=== PATIENT | female | born 1960 | race Caucasian/White ===

== ENCOUNTER 2025-07-05 13:18 | Emergency (ER) | payer OTHER, SELFPAY ==
--- OUTSIDE RECORDS SUMMARY | 2025-07-05 13:22 | XMS_ITS | Clinical Summary ---
Author Organization [facility] [employer] Address [address] [place] [address] Care Team Providers Care Change Management Manager Name Role Phone Unavailable Primary Care Provider Unavailabl e Source Comments [facility],non-owned Affiliates and Associated Physician Practices is amultiple site organization consisting of ambulatory clinics and hospital sitesin [place], [place], [place] and [place]. This disclosure is being madepursuant to the Care Everywhere program and may not contain all information available regarding this patient. Last updated 18.[facility] Allergies No known active allergies Medications * Be aware that medications may not be up to date on this document. Alwaysverify current medications with the patient. Venlafaxine HCl (EFFEXOR PO) Active CLONAZEPAM PO Active GABAPENTIN, ONCE-DAILY, PO Activ e dilTIAZem coated beads 24hr (CARTIA XT) 120 MG capsuleIndication s:Essential hypertension Take 1 Cap by mouth once daily Do not crush or chew. 30 Cap 02/09/2017 Active Immunizations Immunization Administration Dates Next Due TDAP (7yrs+) 02/12/2018 Family History Medical History Relation Name Comments Diabetes - Type 1 Father Diabetes - Type 1 Mother Relation Name Status Comments Father Mother Social History Tobacco Use Types Packs/Day Years Used Date Smoking Tobacco: Never Comments No Sex and Gender Information Value Date Recorded Sex Assigned at Not on file Legal Sex Female 6:40 PM CDT Gender Identity Not on file Sexual Orientation Not on file Last Filed Vital Signs Vital Sign Reading Time Taken Comments Blood Pressure 132/90 02/09/2017 6:53 PM CDT Pulse 74 02/09/2017 6:53 PM CDT Temperature 37 C (98.6 F) 02/09/2017 6:53 PM CDT Respiratory Rate 16 02/09/2017 6:53 PM CDT Oxygen Saturation 99% 02/09/2017 6:53 PM CDT Inhaled Oxygen Concentration - - Weight 62.6 kg (138 lb) 02/09/2017 6:53 PM CDT Height 167.6 cm (5' 6) 02/09/2017 6:53 PM CDT Body Mass Index 22.27 02/09/2017 6:53 PM CDT Plan of Treatment Health Maintenance Due Date Last Done Comments COLOGUARD (AGES 45-75) - COLON CA SCREENING 1962 COLON MONITORING 1962 COLONOSCOPY - COLON CA SCREENING 1962 CT COLONOGRAPHY - COLON CA SCREENING 1962 Colorectal Cancer Screening 1962 FIT - COLON CA SCREENING 1962 FLEX SIG - COLON CA SCREENING 1962 LIPID TESTING 1962 MAMMOGRAM 1962 HIV SCREENING 1977 HEPATITIS C SCREENING 06/05/1980 PNEUMOCOCCAL VACCINE 50+ (1 of 1 - PCV) 2012 ZOSTER VACCINE (1 of 2) 2012 DEPRESSION SCREENING 09/19/2024 COVID-19 VACCINE (1 - season) 2025 INFLUENZA VACCINE (#1) 2025 5, 07/20/2014, 07/20/2013, Additional history exists DTAP/TDAP/TD VACCINES (2 - Td or Tdap) 02/13/2028 02/12/2018 Respiratory Syncytial Virus (RSV) Vaccine Pt: or over 60 yrs (1 - 1-dose 75+ series) 2037 HEPATITIS B VACCINE Aged Out No longe r eligible based on patient's age to complete this topic HIB VACCINE Aged Out No longer eligi ble based on patient's age to complete this topic HPV VACCINE Aged Out No longer eligi ble based on patient's age to complete this topic MENINGOCOCCAL (Group B) VACCINE SHARED DECISION-MAKING Aged Out No longer eligible based on patient's age to complete this topic MENINGOCOCCAL GROUPS A/C/Y/W VACCINE Aged Out No longer eligible based on patient's age to complete this [place] [address] [place] [address] [facility]
--- OUTSIDE RECORDS SUMMARY | 2025-07-05 13:22 | XMS_ITS | Clinical Summary ---
Author Organization [facility] Address [address] [place] [address] Phone Care Team Providers Care Inhalation Therapy Aide Name Role Phone Todd Packer MD Unavailable [phone] Allergies No known active allergies Medications Calcium Carbonate-Vitami n D (CALCIUM + D PO) Take 1 Tab by mouth daily. Active venlafaxine (EFFEXOR XR) 150 MG PO CAP-SR-24HR Take 150 mg by mouth daily. Active CLONAZEPAM 0.5 MG PO TABS Take 1 Tab by mouth nightly. 4 Active MAGNESIUM PO Take 1 Tab by mouth daily. Active gabapentin (NEURONTIN) 300 MG PO CAPS Take 600 mg by mouth nightly. Active [place]-3 Fatty Acids (FISH OIL) 1200 MG PO CAPS Take 1,200 mg by mouth daily. Active Melatonin 1 MG PO CAPS Take 0.5 mg by mouth. Active Multiple Vitamins-Mineral s (MULTIVITAMIN PO) Take by mouth. Active triamcinolone (KENALOG) 0.1 % CreamIndications :Eczema, unspecified eczema Apply thin film to affected area(s) twice daily until healed. 80 g 1 5 Active CARTIA XT 120 MG CAPSULE SR 24 HR TAKE 1 CAPSULE BY MOUTH DAILY 30 Cap 0 7 Active Active Problems Problem Noted Date Diagnosed Date Colon cancer screening 11/01/2014 Overview (11/01/2014): No family history colon cancer. Colonoscopy to 2014. No polyps. Repeat colonoscopy 10 years. Headache, menstrual migraine 09/04/2014 Dyspnea and respiratory abnormality 05/28/2014 Bronchiectasis without acute exacerbation 2013 BMI 26.0-26.9,adult 03/09/2013 Vitamin D deficiency 03/09/2013 GERD (gastroesophageal reflux disease) 2 Chronic cough 11/09/2011 Overview (03/09/2013): Chronic bronchitis, Alb prn, Sees Dr Brunner HTN (hypertension), benign 11/09/2011 Preventative health care (Adult) 11/09/2011 Overview (03/09/2013): Nl pap [address] Barron. Nl Mammo 2012 per pt. Depression 11/09/2011 Overview (03/09/2013): Sees psych Dr Mcgrath. Immunizations Immunization Administration Dates Next Due Influenza Vaccine greater than 3 yrs 07/20/2014, 07/20/2013,08/18/2011 PUR FLU 3+ YRS PRES FREE QUAD IM 07/17/2015 Family History Medical History Relation Name Comments Diabetes Father Cancer Mother pancreatic ca Diabetes Mother Hypertension Mother Stroke Paternal Grandmother Asthma Neg Hx Breast Cancer Neg Hx Heart Attack Neg Hx Ovarian Cancer Neg Hx Thyroid Disease Neg Hx Relation Name Status Comments Father Mother Paternal Grandmother Social History Tobacco Use Types Packs/Day Years Used Date Smoking Tobacco: Never Smokeless Tobacco: Never Alcohol Use Standard Drinks/Week Comments Yes 0 (1 standard drink = 0.6 oz pur e alcohol) once per month Sexually Active Control Partners Comments Yes Comments No Sex and Gender Information Value Date Recorded Sex Assigned at Not on file Legal Sex Female 3:17 AM RESEARCH GEOLOGIST Gender Identity Not on file Sexual Orientation Not on file Last Filed Vital Signs Vital Sign Reading Time Taken Comments Blood Pressure 142/90 07/17/2015 7:47 AM CDT Pulse 80 07/17/2015 7:47 AM CDT Temperature 37.1 C (98.7 F) 07/17/2015 7:47 AM CDT Respiratory Rate 16 07/17/2015 7:47 AM CDT Oxygen Saturation 100% 11/13/2014 11:11 AM RESEARCH GEOLOGIST on room air Inhaled Oxygen Concentration - - Weight 73.9 kg (163 lb) 07/17/2015 7:47 AM CDT Height 165.1 cm (5' 5) 07/17/2015 7:47 AM CDT Body Mass Index 27.12 07/17/2015 7:47 AM CDT Plan of Treatment Health Maintenance Due Date Last Done Comments Hepatitis C Virus (HCV) Screening 1962 TdaP Immunization 1962 Pneumococcal Immunization (50+ years) (1 of 2 - PCV) 1981 HPV/Cotest 1992 Cologuard 2007 Immunochemical Fecal Occult Blood 2007 Zoster Immunization (1 of 2) 2012 Cervical Cancer Screening (CCS) 07/17/2018 Pap Smear 07/17/2018 07/17/2015, 06/20, 03/15/2012, Additional history exists Respiratory Syncytial Virus (RSV) Immunization (Adult) (1 - Risk 60-74 years 1-dose series) 2022 Colonoscopy 11/01/2024 11/01/2014, 11/01/2014 Colorectal Cancer Screening 11/01/2024 Influenza Immunization (#1) 05/20/202506/20, 07/20/2014, 07/20/2013, Additional history exists SARS-COV-2 Immunization ( season) 2025 Mammogram Discontinued 10/24/2014 Hepatitis B Immunization Aged Out No longer eligible based on patient's age to complete this topic Human Papillomavirus (HPV) Immunization Aged Out No longer eligible based on patient's age to complete this topic Meningococcal Immunization (ACWY) Aged Out No longer eligible based on patient's age to complete this topic Rotavirus Immunization Aged Out No lo nger eligible based on patient's age to complete this topic Procedures Procedure Name Priority Date/Time Associated Diagnosis Comments PATHOLOGY CYTOLOGY FAMILY LAW SPECIALIST Routine 07/17/2015 8:07 AM CDT Well woman exam with routine gynecological exam NICHOLE SCREENING BILATERAL DIGITAL W CAD Routine 10/24/2014 12:01 PM RESEARCH GEOLOGIST Other screening mammogram from Last 3 Months or Most Recently Relevant to Health Maintenance Results * PATHOLOGY CYTOLOGY FAMILY LAW SPECIALIST (07/17/2015 8:07 AM CDT) SPECIMEN ADEQUACY Satisfactory for evaluation. Endocervical cells present. 07/29/2015 7:23 AM [facility] DESCRIPTIVE DIAGNOSIS Negative for intraepithelial lesions. No dysplastic cells present. 07/29/2015 7:23 AM [facility] at 0723 RESEARCH GEOLOGIST OTHER FINDINGS Atrophic hormonal pattern. 07/29/2015 7:23 AM [facility] AUTOMATED EXAMINATION Analysis of this sample has been assisted by an automated imaging and review system ([employer] System, [place], [place], [place]). This case is further evaluated and finalized by a cage shift manager and/or pathologist. 07/29/2015 7:23 AM [facility] DISCLAIMER The PAP smear is a screening test designed to detect cancerous or precancerous cells of the uterine cervix. It is one of the best means available for detection of cervical cancer but still carries an inherent false-negative rate. The consequences of a false-negative PAP result can be minimized by adhering to current screening guidelines. The following are general guidelines recommended by the ACS, ASCP, ASCCP, and ACOG: PAP testing is recommended every three years for women 21-29, Co-Testing, a PAP test in conjunction with an HPV (Human Papillomavirus) test for women ages 30-65, and no PAP or HPV testing for women under the age of 21 or older than 65 unless clinically indicated. 07/29/2015 7:23 AM [facility] Case Report Gynecologic Cytology Report Case: [id number] Authorizing Provider: Lupe Garcia APN Collected: 07/17/2015 08:07 AM Ordering Location: [facility] Received: 07/17/2015 02:33 PM MEDICINE First Screen: Lise Booker Rescreen: Paxton Barker. Specimen: Cervical/Endocervic al, liquid based thin layer preparation (Thin Prep ), CERVIX/ENDOCERVIX 07/29/2015 7:23 AM [facility] HPV Reflex if ASCUS? Yes 07/29/2015 7:23 AM [facility] Specimen of unknown material (specimen) CERVIX UTERI STRUCTURE / Unknown 07/17/2015 8:07 AM CDT 07/17/2015 2:33 PM CDT us Lupe Gilmore APRN, CNP PATHOLOGY/CYTOLOGY ORDER CHIP Final Result [facility] [address] [place] [address] * NICHOLE SCREENING BILATERAL DIGITAL W CAD (10/24/2014 12:01 PM RESEARCH GEOLOGIST) Anatomical Region Laterality Modality breast Bilateral Mammography Impressions 10/26/2014 6:05 PM RESEARCH GEOLOGIST No suspicious mammographic findings. RECOMMENDATION: Annual mammography. BIRADS: 1 - NEGATIVE Narrative 10/26/2014 6:05 PM RESEARCH GEOLOGIST DICTATING PHYSICIAN: Mohan Lin MD EXAM: Bilateral screening Mammography with CAD dated 10/24/2014 CLINICAL HISTORY: Scheduled screening mammogram. COMPARISON: Mammography dated: 07/05/2005, 01/05/2006. FINDINGS: Standard mammographic views were obtained. The exam was interpreted with the use of CAD. The breasts are composed of heterogeneously dense fibroglandular tissue. No suspicious masses, calcifications or other abnormal findings are identified in either breast. There has been no significant change in the mammographic appearance of either breast. Procedure Note Mohan Lin MD - 10/26/2014 DICTATING PHYSICIAN: Mohan Lin MD EXAM: Bilateral screening Mammography with CAD dated 10/24/2014 CLINICAL HISTORY: Scheduled screening mammogram. COMPARISON: Mammography dated: 07/05/2005, 01/05/2006. FINDINGS: Standard mammographic views were obtained. The exam was interpreted withthe use of CAD. The breasts are composed of heterogeneously densefibroglandular tissue. No suspicious masses, calcifications or otherabnormal findings are identified in either breast. There has been nosignificant change in the mammographic appearance of either breast. IMPRESSION: No suspicious mammographic findings. RECOMMENDATION: Annual mammography. BIRADS: 1 - NEGATIVE us Mara Navarro MD IMG MAMMO ORDERABLES Fi nal Result from Last 3 Months or Most Recently Relevant to Health Maintenance Care Teams Inhalation Therapy Aide Relationship Specialty Start Date End Date Todd Packer MD [address] [address] [employer] Executive Obstetrics & Gynecology 03/12/13
--- OUTSIDE RECORDS SUMMARY | 2025-07-05 13:22 | XMS_ITS | Encounter Summary ---
Author Organization [facility] Healthcare Address [address] [place] [address] Care Team Providers Care Medical Office Supervisor Name Role Phone Kelly Roa MD Primary Care Provider [phone] Reason for Visit * Reason Onset Date Comments Cough 06/25/2025 Encounter Details Date Type Department Care Team (Late st Contact Info) Description 06/25/2025 Nurse Triage [address] [place] [address] Kelly Roa MD [address] [place] [address] [address] [place], [place] [id number] Social History Tobacco Use Types Packs/Day Years Used Date Smoking Tobacco: Never Smokeless Tobacco: Never Comments:None Alcohol Use Standard Drinks/Week Comments No 0 (1 standard drink = 0.6 oz pur e alcohol) AUDIT-C Answer Date Recorded Q1: How often do you have a drink containing alc ohol? Monthly or less 11/30/2022 Q2: How many drinks containi ng alcohol do you have on a typical day when you are drinking? 1 or 2 11/30/2022 Frequency of Binge Drinking Not on file 11/17 PHQ-2 Answer Date Recorded PHQ-2 Total Score (If total score is 3 or more points, staff should administer the PHQ-9) 0 07/30/2024 Exercise Vital Sign Answer Date Recorde d On average, how many days pe r week do you engage in moderate to strenuous exercise (like a brisk walk)? 5 days 06/25/2020 On average, how many minutes do you engage in exercise at this level? 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 Pt denies chest pain, fever, sob. Pt does report coughing up blood tinged mucus at times. No OV for the to make today or tomorrow, pt declines CC today or tomorrow to apt time and work tomorrow. Pt requesting OV , availability or will dgo to CC . Pt encouraged to use cough drops, drink warm liquids and hydration. Advised pt to call back with new or worsening symptoms. Message routed to office, FYI- requesting OV , no apt for RN to schedule. Please advise pt. Disposition See Today in Office Reason for Disposition Coughing up sarita-colored (reddish-brown) or blood-tinged sputum No Initial Assessment on file. No Additional Information on file. Protocols Used [id number] * Telephone Encounter - Martha Mata RN - 06/25/2025 11:18 AM CDT Regarding: Coughing Up Yellow Phlegm and fatigue ----- Message from Criselda Suero sent at 06/25/2025 10:04 AM CDT ----- Symptom Based Call Chief Complaint(s): Coughing Up Yellow Phlegm and fatigue Duration: 3 weeks What type of symptom(s) is the patient experiencing? Non-Emergent. Is this a new or reoccurring symptom(s)? New What have you tried to help your symptom(s)? Why was appointment not scheduled? Appointment availability did not meet the patient's need. Additional Comments: No SOB, No Fever, a little chest congestion Does message need to be routed? Yes-Action Needed documented in this encounter Plan of Treatment Scheduled Procedures Name Priority Associated Diagnoses Date/Ti me COLONOSCOPY Screening for colorectal cancer documented as of this encounter Visit Diagnoses Not on filedocumented in this encounter Care Teams Medical Office Supervisor Relationship Specialty Start Date End Date Kelly Roa MD PCP - General Sleep Medicine 02/25/21 documented as of this encounter
--- OUTSIDE RECORDS SUMMARY | 2025-07-05 13:22 | XMS_ITS | Encounter Summary ---
Author Organization [facility] Address [address] [place] [address] Phone Care Team Providers Care Inspector And Hand Packager Name Role Phone Unknown, Notinfile Primary Care Provider Unavail able Meena Mercado MD Primary Care Provider [phone] Annie Madden MD Primary Care Provider [phone] No, Physician Primary Care Provider [phone] Kelly Roa MD Primary Care Provider [phone] Encounter Details Date Type Department Care Team (Late st Contact Info) Description 11/10/2017 Orders Only [facility] ProviderPrema MD [address] [place] [address] Social History Tobacco Use Types Packs/Day Years Used Date Smoking Tobacco: Never Comments Unknown Sex and Gender Information Value Date Recorded Sex Assigned at Not on file Legal Sex Female 10:52 AM HEADER SET UP OPERATOR Gender Identity Female 07/21/2021 8:22 AM CDT Sexual Orientation Straight 07/21/2021 8: 22 AM CDT documented as of this encounter Plan of Treatment Scheduled Procedures Name Priority Associated Diagnoses Date/Ti me COLONOSCOPY Screening for colorectal cancer documented as of this encounter Procedures Procedure Name Priority Date/Time Associated Diagnosis Comments DISCHARGE LABORATORY CUMULATIVE REPORT 11/10/2017 12:00 AM HEADER SET UP OPERATOR documented in this encounter Results * DISCHARGE LABORATORY CUMULATIVE REPORT (11/10/2017 12:00 AM HEADER SET UP OPERATOR) Narrative 11/10/2017 12:00 AM HEADER SET UP OPERATOR Ordered by an unspecified provider. us Historical Provider LAB BLOOD ORDERABLES Karon l Result documented in this encounter Visit Diagnoses Not on filedocumented in this encounter Additional Health Concerns Infection Onset Date Last Indicated Resolved Time COVID: Suspected 10/19/2024 10/19/2024 10/20/2024 3:05 AM HEADER SET UP OPERATOR Influenza, adult 10/19/2024 10/19/2024 10/26/2024 3:07 AM HEADER SET UP OPERATOR COVID: Suspected 06/04/2025 06/04/2025 06/04/2025 10:54 AM CDT documented as of this encounter Care Teams Inspector And Hand Packager Relationship Specialty Start Date End Date Unknown, Notinfile PCP - General 11/10/17 11/22/17 Meena Mercado MD [address] [place] [id number] [place] [address] PCP - General 11/23/17 08/24/18 Annie Madden MD [address] [place] [phone] [place] [address] PCP - General Family Practice 11/16/18 11/04/20 No, Physician PCP - General 11/05/20 02/24/21 Kelly Roa MD PCP - General Sleep Medicine 02/25/21 documented as of this encounter
--- OUTSIDE RECORDS SUMMARY | 2025-07-05 13:22 | XMS_ITS | Clinical Summary ---
Author Organization [facility] Address [address] [place] [id number] Care Team Providers Care Community Development Coordinator Name Role Phone Kelly Roa MD Primary Care Provider [phone] Allergies No known active allergies Medications calcium carbonate-vitam in D3 1,500 mg (600mg elemental) -800 unit per tablet Take by mouth. Active multivit with calcium,iron,mi n (MULTIPLE VITAMIN, WOMENS ORAL) Take by mouth. Activ e tacrolimus (PROTOPIC) 0.03 % ointment Apply topically 2 (two) times a day 100 g 2 02/26/20 21 Active Additional Information Patient not taking.Reported on 07/02/2025 scopolamine 1 mg over 3 days patch [address] 1 patch on the skin every third day as needed (nausea) 4 patch 2 11/12/19 23 Active Additional Information Patient not taking.Reported on 06/04/2025 ondansetron (ZOFRAN) 4 mg tablet Take 1 tablet (4 mg total) by mouth every 8 (eight) hours as needed for nausea or vomiting 20 tablet 2 12/18/19 23 Active Additional Information Patient not taking.Reported on 07/02/2025 mometasone (ASMANEX) 110 mcg/ actuation (30) inhaler Inhale 2 puffs daily Rinse mouth with water after use. Do not swallow. 6 each 3 12/12/19 24 Active Additional Information Patient not taking.Reported on 06/04/2025 fluticasone propionate (FLONASE) 50 mcg/actuation nasal spray Administer 2 sprays into each nostril daily 3 each 4 12/12/19 24 Active Additional Information Patient not taking.Reported on 07/02/2025 albuterol HFA (ProAir HFA) 90 mcg/actuation inhaler Inhale 2 puffs every 6 (six) hours as needed for wheezing or shortness of breath 1 each 02/16/20 24 Active valACYclovir (VALTREX) 1 gram tablet Take 2 tabs (2000 mg) 2 times a days for 1 day. 4 tablet 5 07/11/20 24 Active Additional Information Patient not taking.Reported on 06/04/2025 triamcinolone (KENALOG) 0.1 % creamIndication s:Eczema intertrigo Apply topically 2 (two) times a day 454 g 1 07/30/20 24 Active Additional Information Patient not taking.Reported on 07/02/2025 pseudoephedrine (SUDAFED) 60 mg tabletIndicatio ns:Nasal Congestion Take 1 tablet (60 mg total) by mouth every 6 (six) hours as needed for congestion 30 tablet 10/08/19 25 Active Additional Information Patient not taking.Reported on 06/04/2025 promethazine-DM (PROMETHAZINE-D M) 1.25-3 mg/mL syrupIndication s:Cough Take 5 mL by mouth every 4 (four) hours as needed for cough 120 mL 10/23/19 25 Active Additional Information Patient not taking.Reported on 06/04/2025 clonazePAM (KlonoPIN) 0.5 mg tablet TAKE 1 TABLET(0.5 MG) BY MOUTH DAILY NEEDED FOR ANXIETY 90 tablet 1 02/08/20 25 Active ARIPiprazole (ABILIFY) 2 mg tablet TAKE 1 TABLET DAILY 90 tablet 04/08/20 25 Active dilTIAZem CD/XR/XT (dilTIAZem XR) 120 mg 24 hr capsule TAKE 1 CAPSULE DAILY 90 capsule 04/08/20 25 Active venlafaxine XR (EFFEXOR-XR) 150 mg 24 hr capsule TAKE 1 CAPSULE DAILY 90 capsule 3 04/24/20 25 Active Additional Information Patient not taking.Reported on 06/04/2025 lisdexamfetamin e (VYVANSE) 60 mg capsuleIndicati ons:Binge Eating Disorder Take 1 capsule (60 mg total) by mouth every morning 30 capsule 06/15/20 25 025 Active benzonatate (TESSALON) 200 mg capsuleIndicati ons:Lower respiratory infection (e.g., bronchitis, pneumonia, pneumonitis, pulmonitis) Take 1 capsule (200 mg total) by mouth 3 (three) times a day as needed for cough 30 capsule 07/02/20 25 Active azithromycin (ZITHROMAX) 250 mg tabletIndicatio ns:Lower respiratory infection (e.g., bronchitis, pneumonia, pneumonitis, pulmonitis) Take 2 tablets the first day, then 1 tablet daily for 4 days. 6 tablet 07/02/20 25 Active lisdexamfetamin e (VYVANSE) 60 mg capsuleIndicati ons:Binge Eating Disorder Take 1 capsule (60 mg total) by mouth every morning 30 capsule 05/16/20 25 025 Discontinu ed(Reorder ) amoxicillin (AMOXIL) 875 mg tabletIndicatio ns:Strep throat Take 1 tablet (875 mg total) by mouth 2 (two) times a day for 10 days 20 tablet 06/04/20 25 025 Active Problems Problem Noted Date Diagnosed Date Osteopenia of lumbar spine 12/12/2023 Assessment & Plan (12/12/2023 1:57 PM CDT): Chronic, noted on recent DEXA. Recommendations for vitamin-D and calcium reviewed. Anxiety 07/26/2023 Assessment & Plan (12/12/2023 1:56 PM CDT): Chronic, stable, well controlled. Continue medication regimen including Abilify, Effexor, and clonazepam. Assessment & Plan (07/26/2023 11:05 AM ROOM MANAGER): Chronic, stable, well controlled. Continue medication regimen including Abilify, Effexor, and clonazepam. Binge-eating disorder, mild 05/25/2022 Assessment & Plan (07/26/2023 11:06 AM ROOM MANAGER): Chronic, stable on Vyvanse with clear benefit. Continue current therapy. Assessment & Plan (06/02/2023 10:53 AM CDT): Chronic, stable on Vyvanse. Samples of GLP 1 therapy provided today. Assessment & Plan (01/11/2023 11:27 AM CDT): Chronic, much improved on Vyvanse. Overall she is approaching a healthy weight with Vyvanse and GLP-1 therapy intermittently at low-dose. Additional samples of Wegovy provided today to help her reach her goal weight of 135 lb. Continue Vyvanse. Assessment & Plan (10/05/2022 9:19 AM ROOM MANAGER): Chronic, persistent, with modest benefit from Vyvanse. Will increase Vyvanse to 60 mg. We reviewed topiramate today as a potential option, though brain fog and risk of exacerbating patient's underlying depression remain significant concerns. Bupropion not an option, as this caused depression in the past. Assessment & Plan (07/15/2022 12:09 PM CDT): Chronic, somewhat improved on Vyvanse. Will increase Vyvanse dose to 50 mg daily. Assessment & Plan (05/25/2022 9:09 PM CDT): Patient's description of nighttime compulsive eating is concerning for a milder presentation of binge eating disorder. She is seeing adverse effects including weight gain from this. There is concern she would not tolerate topiramate due to possible side effect of brain fog. As she has done very well with phentermine before, a trial of Vyvanse is appropriate. Prescription sent to patient's pharmacy. Side effects reviewed. Preventative health care 05/25/2022 Assessment & Plan (07/26/2023 11:06 AM ROOM MANAGER): From a preventative care standpoint she is doing well. No substance use of concern. Weight is healthy for her height and she is focusing on maintenance. Script for RSV vaccine provided. Routine labs ordered today. Up-to-date on breast cancer and colon cancer screening. Assessment & Plan (05/25/2022 9:10 PM CDT): From a preventative care standpoint no substance use of concern. Weight management as noted below. Blood pressures are well controlled. Routine labs today. Chronic bilateral low back pain with right-sided sciatica 03/04/2021 Assessment & Plan (07/28/2021 11:48 AM ROOM MANAGER): Chronic, improved with physical therapy, exercise, stretching. Continue behavioral management and monitor. Assessment & Plan (03/04/2021 8:42 AM CDT): We discussed possible management options and decided on x-rays to evaluate with a referral to physical therapy. Essential hypertension 03/04/2021 Assessment & Plan (07/26/2023 11:06 AM ROOM MANAGER): Chronic, well controlled, continue diltiazem. Assessment & Plan (05/25/2022 9:08 PM CDT): Chronic, well controlled, continue diltiazem. Assessment & Plan (03/04/2021 8:43 AM CDT): Stable and well controlled. Diltiazem refilled today. Lung mass 08/01/2018 History of hemoptysis 08/01/2018 Vaginal atrophy 11/10/2017 Actinic keratosis 03/28/2017 Eczema 03/02/2016 Assessment & Plan (07/28/2021 11:48 AM ROOM MANAGER): Chronic, improved on topical tacrolimus and p.r.n. fluocinonide cream. Continue current regimen. Assessment & Plan (03/04/2021 8:42 AM CDT): Uncontrolled. Given lower potency topical steroids are not working well on some of the more stubborn lesions I will prescribe tacrolimus ointment and a higher potency fluocinonide formulation. Bronchiectasis without acute exacerbation 2013 Assessment & Plan (12/12/2023 1:57 PM CDT): Chronic, uncontrolled with interruption in inhaler therapy due to insurance not covering Flovent anymore verses in exacerbation. We will switch from inhaled fluticasone to inhaled mometasone which appears to be covered by insurance. Will add Flonase for postnasal drip exacerbating cough. Patient was given a sample of low-dose Trelegy for the next couple of weeks to help in getting symptoms back under control. Assessment & Plan (07/26/2023 10:54 AM ROOM MANAGER): Asymptomatic, without requiring inhaled therapy. Monitor. Resume Flovent if symptoms recur. Assessment & Plan (10/05/2022 9:18 AM ROOM MANAGER): Chronic, stable, well controlled on Flovent and as needed albuterol. Continue current therapy. Assessment & Plan (05/25/2022 9:08 PM CDT): Previous diagnosis of bronchiectasis, with increased productive cough over the last few months. Concerned this may represent a change in bronchiectasis, though other lung disease is a consideration. Pulmonary function testing done within the last year or so showed no evidence of obstructive lung disease and patient has no tobacco use history, so asthma or COPD seem less likely. Refills of albuterol inhaler provided. I will also adding inhaled corticosteroid, with a recommendation away from using INGE as monotherapy. If symptoms persist consider repeating pulmonary function testing, lung imaging in future. Vitamin D deficiency 03/09/2013 GERD (gastroesophageal reflux disease) 2 Resolved Problems Problem Noted Date Diagnosed Date Resolved Date Fungal skin infection 01/11/20232022 Assessment & Plan (01/11/2023 11:27 AM CDT): Armpit rash is most consistent with a fungal skin infection. Topical clotrimazole provided. Overweight (BMI 25.0-29.9) 07/15/2022 0 01/11/2023 Assessment & Plan (10/05/2022 9:19 AM ROOM MANAGER): Chronic, in the setting of binge eating disorder. Labs today evaluating for insulin resistance. Consider GLP-1 therapy. Assessment & Plan (07/15/2022 12:10 PM CDT): Chronic, related in part to binge eating disorder, with comorbidities including osteoarthritis and hypertension. In addition to management of binge eating disorder will start patient on a course of phentermine to support healthy weight loss efforts. Respiratory infection 07/28/20212021 Assessment & Plan (07/28/2021 11:49 AM ROOM MANAGER): Concerning for secondary bacterial infection given 2 week duration of symptoms with ongoing fatigue and productive cough (different from patient's normal chronic cough). Bibasilar rhonchi appreciated on examination today. We will empirically treat with a course of antibiotics. We will try azithromycin given coverage of atypical organisms. If symptoms do not improve consider chest imaging and further workup. Hemoptysis 03/04/2021 05/25/2022 Assessment & Plan (03/04/2021 8:42 AM CDT): Possible small volume hemoptysis verses blood-tinged sputum in the setting of chronic cough. CT chest ordered and referral to pulmonology placed. BMI 23.0-23.9, adult 03/04/2021 022 Fever 03/04/2021 05/25/2022 Assessment & Plan (03/04/2021 8:43 AM CDT): We discussed concern for infection, with differential diagnosis including COVID infection, viral upper respiratory infection, or strep pharyngitis. She was strongly advised to have testing both for COVID and strep done. She prefers to do that closer to home at a rapid testing urgent care site rather than through [facility]. Chronic cough 11/09/2011 10/05/2022 Overview (02/25/2021): Chronic bronchitis, Alb prn, Sees Dr Brunner Assessment & Plan (07/28/2021 11:47 AM ROOM MANAGER): Chronic, much improved with albuterol inhaler, p.r.n. Mucinex and Tessalon Perles. We agreed given symptomatic improvement it is okay for her to hold off seeing ENT at this time. This can always be revisited in future if symptoms should worsen. Continue current regimen. Assessment & Plan (03/04/2021 8:41 AM CDT): While previous workup for her chronic cough with possible hemoptysis was reported to be unremarkable she is not comfortable with this. She does not feel like she had a good workup and diagnosis done. I have ordered a repeat CT of the chest with contrast for her and placed a referral to pulmonology to consider next steps. Leaving aside the possible hemoptysis or blood-tinged sputum, chronic cough etiologies could include postnasal drip, acid reflux, or asthma. Encounters Date Type Department Care Team Description 07/02/2025 2:00 PM CDT Office Visit [facility] at [address] [phone] Gunjan Gomez NP Lower respiratory infection (e.g., bronchitis, pneumonia, pneumonitis, pulmonitis) (Primary Dx) 06/25/2025 Nurse Triage [facility] [address] [place] [phone] Kelly Roa MD 06/20/2025 1:27 PM CDT - 06/20/2025 11:59 PM CDT Hospital Encounter [facility] Breast Imaging [facility] [address] [place] [phone] Screening mammogram, encounter for Discharge Disposition: Discharge to home or self care 06/20/2025 Immunization [facility] [address] [place] [address] Medicine 5th [address] [place] [address] Fang Castro 06/04/2025 10:30 AM CDT Office Visit [facility] at [address] [phone] Gunjan Gomez NP Strep throat (Primary Dx) from Last 3 Months Immunizations Immunization Administration Dates Next Due COVID-19 mRNA (PFIZER) 0.3 m L (30 mcg) vaccine (12 years and up) 06/19/2024 Influenza, Quadrivalent, Spl it, Preservative Free, Intramuscular 07/17/2015 Influenza, Trivalent, Cell Culture-based MDCK, Preservative Free, Antibiotic Free, Intramuscular 06/20/2025,06/19/2024 Influenza, Trivalent, IM (MDV) 4,07/20/2013,08/18/2011,07/02 Influenza, Unspecified 06/24/2022,2020,05/20/2020,05/20 Pfizer SARS-CoV-2 Monovalent Vaccination (12+ Yrs) PURPLE 10/08/2020,09/17/2020 Pfizer Sars-Cov-2 Bivalent V accination (12+ YRS) 10/05/2022 Pneumococcal Polysaccharide PPV23 07/06/2010 Tdap 02/12/2018,09/19/2013,04/28/2010 ZOSTER Recombinant 08/29/2020,06/27/2020 Surgical History Surgery Date Site/Laterality Comments HI DELIVERY ONLY Section - (Added by TW Conv) HI HYSTEROSCOPY ENDOMETRIAL ABLATION Hysteroscopy With Endometrial Ablation - (Added by TW Conv) BRONCHOSCOPY SECTION COLONOSCOPY Medical History Medical History Date Comments Personal history of other me ntal and behavioral disorders History of depression - (Add ed by TW Conv) Personal history of other me ntal and behavioral disorders History of anxiety - (Added by TW Conv) Personal history of other di seases of the circulatory system History of hypertension - (A dded by TW Conv) Asthma Hypertension Depression Chronic cough 11/09/2011 Formatting of th is note might be different from the original. Chronic bronchitis, Alb prn, Sees Dr Kannan JACOME (postoperative nausea a nd vomiting) Lung mass Family History Medical History Relation Name Comments Depression Brother Arnulfo Angel Diabetes Father Buck Angel Diabetes Mother Alie Angel Pancreatic cancer Mother Alie Angel Depression Mother's Sister Oralia Bravo Breast cancer Neg Hx Ovarian cancer Neg Hx Prostate cancer Neg Hx Relation Name Status Comments Brother Arnulfo Angel Father Buck Angel Mother Alie Angel Mother's Sister Oralia Bravo Social History Tobacco Use Types Packs/Day Years Used Date Smoking Tobacco: Never Smokeless Tobacco: Never Tobacco Cessation:Counseling Given: Not Answered Comments:None Alcohol Use Standard Drinks/Week Comments No [...] on file Legal Sex Female 10:52 AM ROOM MANAGER Gender Identity Female 07/21/2021 8:22 AM CDT Sexual Orientation Straight 07/21/2021 8: 22 AM CDT Obstetrics History Para Term AB IAB SAB Ectopic Multiple Livin g Live Births 2 2 2 2 2 Date Outcome GA Total Labor Labor/2nd/3rd Weight Sex Type Anes PTL La A1 A5 Name Clin 1984 Term CS-Unsp ec Living 1987 Term Vaginal Living Last Filed Vital Signs Vital Sign Reading Time Taken Comments Blood Pressure 146/85 07/02/2025 1:59 PM CDT Pulse 94 07/02/2025 1:59 PM CDT Temperature 36.6 C (97.9 F) 07/02/2025 1:59 PM CDT Respiratory Rate 16 07/02/2025 1:59 PM CDT Oxygen Saturation 98% 07/02/2025 1:59 PM CDT Inhaled Oxygen Concentration - - Weight 63.5 kg (140 lb) 07/02/2025 1:59 PM CDT Height 165.1 cm (5' 5) 06/20/2025 1:46 PM CDT Body Mass Index 23.3 06/20/2025 1:46 PM CDT Plan of Treatment Scheduled Procedures Name Priority Associated Diagnoses Date/Ti me COLONOSCOPY Screening for colorectal cancer Health Maintenance Due Date Last Done Comments Hepatitis B Screening 1980 Cervical Cancer Screening 01/17/20252023, 07/28/2023, 07/28/2023, Additional history exists Depression Screening 07/30/2025 07/30/2024, 06/02/2023, 05/25/2022, Additional history exists Regular Well Visit/Exam 18-64 07/30/2025 07/30/2024, 07/30/2024, 07/28/2023, Additional history exists Breast Cancer Screening-Mammogram 06/20/2026 06/20/2025, 05/15/2024, 05/03/2023, Additional history exists Colon Cancer Screening-Colonoscopy 12/01/2027 11/30/2022, 11/29/2022 DTaP/Tdap/Td Vaccine (4 - Td or Tdap) 02/13/2028 02/12/2018, 09/19/2013, 04/28/2010 Pneumococcal vaccine <65 Aged Out 07/06/2010 No longer eligible based on patient's age to complete this topic Zoster Vaccine Completed 08/29/2020, 06/27/2020 Colon Cancer Screening-CT Colonography Discontinued 11/30/2022, 11/29/2022 Colon Cancer Screening-DNA Stool Discontinued 11/30/2022, 11/29/2022 Colon Cancer Screening-FIT Discontinued 11/30/2022, Colon Cancer Screening-Sigmoidoscopy Discontinued 11/30/2022, 11/29/2022 Hepatitis C Screening Completed 07/26/2023 Covid-19 Vaccine Completed 06/19/2024, , 10/05/2022, Additional history exists Influenza Vaccine Completed 06/20/2025, , 06/24/2023, Additional history exists Procedures Procedure Name Priority Date/Time Associated Diagnosis Comments SCREENING MAMMOGRAM BILATERAL W EMMETT Schedule Routine, Read Routine (OP Routine) 06/20/2025 1:53 PM CDT Screening mammogram, encounter for POC INFLUENZA A/B, COVID-19 ANTIGEN Routine 06/04/2025 10:53 AM CDT Strep throat POCT RAPID STREP Routine 06/04/2025 10:5 0 AM CDT Strep throat HIGH RISK HPV DNA DETECTION WITH GENOTYPING Routine 07/28/2023 3:13 PM ROOM MANAGER Well woman exam with routine gynecological exam HEPATITIS C ANTIBODY Routine 07/26/2023 11:05 AM ROOM MANAGER Preventative health care COLONOSCOPY 11/30/2022 11:20 AM CDT from Last 3 Months or Most Recently Relevant to Health Maintenance Results * Screening Mammogram Bilateral W Emmett (06/20/2025 1:53 PM CDT) Anatomical Region Laterality Modality Breast Bilateral Mammography Impressions 06/20/2025 7:30 PM CDT Bilateral No evidence of malignancy in either breast. OVERALL BI-RADS FINAL ASSESSMENT: 1 - Negative RECOMMENDATION: Recommend bilateral annual screening mammography. Narrative 06/20/2025 7:30 PM CDT EXAMINATION: Screening Mammogram Bilateral W Emmett: 06/20/2025 COMPARISON: Relevant prior studies available at the time of interpretation were reviewed, including the most recent mammogram on: 05/15/2024. TECHNIQUE: Mammography was performed with 2D and 3D digital breast tomosynthesis (DBT) images. CAD was utilized. BREAST PARENCHYMAL COMPOSITION: The breasts are almost entirely fatty. FINDINGS: Bilateral There is no suspicious mass, calcification, or architectural distortion in either breast. Self Screening Mammogram IMG MAMMO PROCEDURES Fi nal Result * POC Influenza A/B, COVID-19 antigen (06/04/2025 10:53 AM CDT) Influenza A Ag, POC Negative Negative [facility] EDW Influenza B Ag, POC Negative Negative [facility] EDW COVID-19 Ag POC Presumptive Negative Presumptive Negative, Invalid [facility] Nasal 06/04/2025 10:5 3 AM CDT Gunjan Gomez NP POINT OF CARE TEST ORDERABLES Final Result [facility] EDW [address] [place] [address], [facility] * (ABNORMAL) POCT rapid strep A (06/04/2025 10:50 AM CDT) Pathologist [facility] Rapid Strep A, POC Positive(A ) Negative Swab 06/04/2025 10:5 0 AM CDT Gunjan Gomez NP POINT OF CARE TEST ORDERABLES Final Result * High Risk HPV DNA Detection with Genotyping (Molecular component) (07/28/2023 3:13 PM ROOM MANAGER) [facility] HPV HR 16 Not Detected Not Detected [facility] Comment:Collection date/time has been modified to: 15:13:00. Previous collection date/time: 03:19:00. HPV HR 18 Not Detected Not Detected [facility] Comment:Collection date/time has been modified to: 15:13:00. Previous collection date/time: 03:19:00. HPV HR Non 16/18 Not Detected Not Detected [facility] Comment: Collection date/time has been modified to: 15:13:00. Previous collection date/time: 03:19:00. Interpretive Data Nucleic acid amplification for detection of high-risk Human Papilloma virus (HPV) is performed by the Cee Fiona 6800 HPV test. This assay specifically detects HPV-16 and HPV-18 genotypes. The following HPV genotypes are detected as high-risk HPV: HPV-31, 33, 35, ,39, 45, 51, 52, 56, 58, 59, 66, and 68. This assay has been approved by the [place] Food and Drug Administration for detection of HPV in cervical specimens collected by a physician using an endocervical brush/spatula or cervical broom and placed in the ThinPrep Pap Test PreservCyt collection containers. The performance characteristics of this test have been verified by the [facility] Molecular Infectious Disease laboratory. Correlate with separately reported cytology results, as applicable. Interpretive data last revised 23 Endocervical 07/28/2023 3:13 PM ROOM MANAGER 07/29/2023 10:44 PM ROOM MANAGER Narrative STEFANO LEYAV - 08/01/2023 11:17 AM ROOM MANAGER Clinical history and diagnosis->screening Number of vials->1 Testing type->Screening Last menstrual period (date if known)->postmenopausal Nannette Christianson MD LAB BODY FLUI DS AND STOOLS ORDERABLES Edited Result - Final Performing Organization Address [facility] Co de Phone Number [facility] Department [place] [address] * Hepatitis C antibody Blood (07/26/2023 11:05 AM ROOM MANAGER) Hep C Ab Nonreactive Nonreactive [facility] Comment:Antibodies to HCV no t detected. Does NOT exclude the possibility of recent exposure to HCV. Current interpretive data was last revised on 22 Blood 07/26/2023 11:0 5 AM ROOM MANAGER 07/26/2023 4:47 PM ROOM MANAGER Kelly Roa MD LAB MICROBIOLOGY - GENERAL OR DERABLES Final Result Performing Organization Address [facility] Co de Phone Number [facility] Department [place] [address] * COLONOSCOPY (11/30/2022 11:20 AM CDT) Anatomical Region Laterality Modality Other Narrative Procedure Note uLiz Houser MD - 11/30/2022 11:20 AM CDT [facility] Patient Name: Aysha Ervin Procedure Date: 11/30/2022 11:20 AM Date of : 1960 Admit Type: Outpatient Age: 62 Gender: Female Attending MD: Luiz Houser M.D. Room: [facility] RO[facility] 8 Note Status: Finalized Procedure: Colonoscopy Indications: Screening for colorectal malignant neoplasm Referring MD: Kareen Pelletier M.D. Providers: Luiz Houser M.D., Georgiana Pacheco M.D. Medicines: Monitored Anesthesia Care Complications: No immediate complications. Estimated Blood Loss: Estimated blood loss: none. Procedure: Pre-Anesthesia Assessment: - Immediately prior to administration ofmedications, the patient was re-assessed for adequacy to receive sedatives. - The risks and benefits of the procedure and the sedation options and risks were discussed with the patient. All questions were answered and informed consent was obtained. The benefits, risks and alternatives of theprocedure and sedation were discussed and informed consentwas obtained. All questions were answered. Please referto the signed informed consent document in the medical record. The scope was passed under direct vision.The [id number] endoscope was introduced through the anus and advanced to the cecum, identified by appendiceal orifice and ileocecal valve. The colonoscopy was performed without difficulty. The patient tolerated the procedure well. The qualityof the bowel preparation was adequate. The bowel preparation used was GoLYTELY. Findings: The perianal and digital rectal examinations were normal. A 4 mm polyp was found in the cecum. The polyp was sessile. The polyp was removed with a cold snare. Resection and retrieval werecomplete. A few small-mouthed diverticula were found in the sigmoid colon. Internal hemorrhoids were found during retroflexion. The hemorrhoids were small. Impression: - Single colonic polyp - Sigmoid diverticulosis coli - Small internal hemorrhoids Recommendation: - Await pathology results. Electronically Signed by Luiz Houser M.D. Luiz Houser M.D. 11/30/2022 11:49:31 AM . Number of Addenda: 0 Note Initiated On: 11/30/2022 11:20 AM Recognized by the [employer] [place] [employer] for promoting quality in endoscopy Luiz Houser MD ENDOSCOPY PROCEDURES F inal Result from Last 3 Months or Most Recently Relevant to Health Maintenance Insurance [facility] [employer] Address: [address] [address] [facility] [employer] Address: [address] [address] [place] [address] Advance Directives For more information, please contact: [phone] * Full Code (Latest Code Status on File) Date Activated Date Inactivated Comments 11/30/2022 10:50 AM 11/30/2022 4:29 PM * Full Code Date Activated Date Inactivated Comments 11/29/2022 11:29 AM 11/29/2022 4:58 PM Care Teams Community Development Coordinator Relationship Specialty Start Date End Date Kelly Roa MD PCP - General Sleep Medicine 02/25/21
[2025-07-05 13:23] VITALS: BP 125/80; PULSE 77; RESP 17; TEMP 36.6; O2SAT 99
--- NOTE | 2025-07-05 15:05 | PC.NURSE ---
called for MSE. no answer.
--- NOTE | 2025-07-05 15:22 | PC.NURSE ---
called again for MSE. No answer.
== END 2025-07-05 15:31 | disposition left against medical advice (07) ==
LOC: ANHED 15:30
PROVIDERS: PCP Family Medicine
DX: R10.30 Lower abdominal pain, unspecified (principal)
CPT/HCPCS: 99199